=== PATIENT | female | born 1980 | race Caucasian/White ===

== ENCOUNTER 2024-10-30 15:22 | Emergency (ER) | payer OTHER, SELFPAY ==
--- NOTE | 2024-10-30 15:29 | ED.URI ---
HPI - URI/Sore Throat General Chief Complaint: Upper Respiratory Infection Stated Complaint: Ear Pain/Runny Nose/Facial Pain Time Seen by Provider: 10/30/24 15:32 Source: patient and RN notes reviewed Mode of arrival: ambulatory Limitations: no limitations History of Present Illness HPI Narrative: 44-year-old female presents with concern for sinus congestion, pressure and left ear pain that started yesterday. Reports history of allergies. She takes Zyrtec and Flonase daily. She denies fever. MD elicited complaint: rhinorrhea and nasal congestion Related Data Home Medications ?Medication ?Instructions ?Recorded ?Confirmed ?Last Taken ?Type Zyrtec 10/30/24 Unknown History flonase 10/30/24 Unknown History Allergies Allergy/AdvReac Type Severity Reaction Status Date / Time dexamethasome Allergy Severe Other Uncoded 10/30/24 15:34 Review of Systems Review of Systems: CONSTITUTIONAL: Denies malaise, chills, sweats, or fever. EYES: Denies visual changes, redness, or discharge. ENT: Reports rhinorrhea, congestion, otalgia CARDIOVASCULAR: Denies chest pain, palpitations, or edema. RESPIRATORY: Denies cough. Denies dyspnea. GASTROINTESTINAL: Denies abdominal pain, nausea, vomiting, diarrhea SKIN: Denies rash or itching. MUSCULOSKELETAL: Denies myalgia. NEUROLOGIC: Denies headache. All systems reviewed & are unremarkable except as noted in HPI and below PMFSH Comments At time of signature, agree with nursing past medical, surgical, social and family history. There is no relevant family history pertinent to the presenting complaint Exam Narrative: GENERAL: Well-appearing, well-nourished, and in no acute distress. HEAD: Normocephalic EYES: PERRLA, conjunctivae clear ENT: Nares clear, turbinates edematous and erythematous, clear discharge. Mucous membranes moist. TM pearly nielsen with dull light reflex bilaterally; no tragal tenderness. Oropharynx not erythematous without lesions. Tonsils not enlarged and without exudate, no drooling, no hoarseness, no trismus, uvula midline. NECK: Supple. No lymphadenopathy CHEST: Clear to auscultation, breath sounds equal. No wheezing, rhonchi, rales, or stridor. No respiratory distress, speaks in full sentences. HEART: Regular rate and rhythm. No murmur heard. SKIN: Warm, dry, no rash. NEURO: Alert and oriented x3. PSYCH: Normal mood and affect Course Course Emergency Course: Patient is aware of diagnosis, understands and agrees to treatment plan. Anticipatory guidance given. Patient agrees to follow-up as directed and is aware of reasons to seek care at the emergency department. Portions of this record may have been created with voice recognition software Level of Care: Express Care Visit Vital Signs Vital signs: Reviewed. MDM - URI/Sore Throat MDM Narrative Medical decision making narrative: Differential diagnosis considered: Hannon virus, strep pharyngitis, allergic rhinitis, upper respiratory tract infection, sinusitis, rhinosinusitis, nasopharyngitis. viral pharyngitis, otitis media, otitis externa, pneumonia, bronchitis, viral cough syndrome, viral syndrome, and influenza. Exam findings show no acute concerns or changes; patient is non-toxic appearing and is in no distress. Patient is appropriate for outpatient treatment and follow-up. Lab Data Attestation: I reviewed the patient's lab results. Critical Care Time Critical Care Time Critical Care Time: No Discharge Plan Discharge Clinical Impression: Fluid level behind tympanic membrane of both ears Patient Disposition: Home Condition: Stable Instructions: Fluid In The Ear (Serous Otitis Media) (ED) Additional Instructions: Take medication as prescribed Recommend antihistamine such as Benadryl at night time and Zyrtec or Kalee during the day Also, recommend symptomatic treatment includes: rest, fluids, and increase humidity of the air at home. Recommend Acetaminophen as directed on the bottle to reduce fever, pain, headache. Avoid smoking/second-hand smoke. Please schedule a follow-up visit with your personal physician for further evaluation and treatment within 3-5days. If your symptoms persist, change or worsen significantly before you can contact your personal physician then please, without delay, go to the emergency department for further evaluation. Patient Language: Upper Sorbian Prescriptions: New methylprednisolone [Medrol (Reinier)] 4 mg tablets,dose pack See Rx Instructions .ROUTE .COMPLEX Qty: 21 0RF Rx Instructions: orally per package directions No Action Zyrtec flonase Follow-up/Referrals: PHYSICIAN NOT ON STAFF,NONSTAFF [Primary Care Provider] - Time of Disposition: 15:42
[2024-10-30 15:31] VITALS: BP 130/79; PULSE 94; RESP 16; TEMP 36.8; O2SAT 100
--- OUTSIDE RECORDS SUMMARY | 2024-10-30 16:41 | XMS_ITS | Clinical Summary ---
Author Organization [facility] Address [address] [place] [address] Care Team Providers Care Rover Tender Name Role Phone Bhavani Henning NP Primary Care Provider [phone] Allergies Active Allergy Reactions Criticality Noted Date Comments Dexamethasone Dystonia High 07/09/2024 Medications ketorolac (TORADOL) 10 mg tablet Take 1 tablet (10 mg total) by mouth every 6 (six) hours as needed for pain 20 tablet 07/09/2024 Active methocarbamoL (ROBAXIN) 500 mg tablet Take 1 tablet (500 mg total) by mouth 2 (two) times a day 20 tablet 07/09/2024 Active Social History Tobacco Use Types Packs/Day Years Used Date Smoking Tobacco: Never Assessed Personal Safety Answer Date Recorded Have you ever been in or are you currently in a harmful physical or emotional relationship or is someone making you feel afraid or unsafe? Denies 07/09/2024 Comments Unknown Sex and Gender Information Value Date Recorded Sex Assigned at Not on file Legal Sex Female 9:01 AM CDT Gender Identity Not on file Sexual Orientation Not on file Last Filed Vital Signs Vital Sign Reading Time Taken Comments Blood Pressure 139/79 07/09/2024 3:30 PM FOREST MANAGEMENT PROFESSOR Pulse 92 07/09/2024 3:30 PM FOREST MANAGEMENT PROFESSOR Temperature 37 C (98.6 F) 07/09/2024 3:30 PM FOREST MANAGEMENT PROFESSOR Respiratory Rate 18 07/09/2024 3:30 PM FOREST MANAGEMENT PROFESSOR Oxygen Saturation 100% 07/09/2024 3:30 PM FOREST MANAGEMENT PROFESSOR Inhaled Oxygen Concentration - - Weight 63.5 kg (140 lb) 07/09/2024 1:42 PM FOREST MANAGEMENT PROFESSOR Height 144.8 cm (4' 9 ) 07/09/2024 1:42 PM FOREST MANAGEMENT PROFESSOR Body Mass Index 30.3 07/09/2024 1:42 PM FOREST MANAGEMENT PROFESSOR Plan of Treatment Health Maintenance Due Date Last Done Comments Breast Cancer Screening-Mammogram 1979 Cervical Cancer Screening 1979 Colon Cancer Screening-Colonoscopy 1979 Depression Screening 1979 Hepatitis C Screening 1979 DTaP/Tdap/Td Vaccine (1 - Tdap) 1990 Varicella Vaccines (1 of 2 - 13+ 2-dose series) 1992 Hepatitis B Screening 1997 Regular Well Visit/Exam 18-64 1997 Covid-19 Vaccine (3 - 2023-2 5 season) 2024 11/09/2020, 10/19/2020 Influenza Vaccine (#1) 2024 HPV Vaccines Aged Out No longer eligi ble based on patient's age to complete this topic Pneumococcal vaccine <65 Aged Out No longer eligible based on patient's age to complete this topic Insurance [facility] Care Teams Rover Tender Relationship Specialty Start Date End Date Bhavani Henning NP [address] [place] [address] PCP - General Song And Dance Performer 02/23/24
--- OUTSIDE RECORDS SUMMARY | 2024-10-30 16:41 | XMS_ITS | Clinical Summary ---
Author Organization [facility] Address [address] [place] [address] Phone Care Team Providers Care Osteopathy Doctor Name Role Phone JuvencioBhavani sexton Yumiko BETANCOURT CNP Primary Care Provider [phone] Allergies Active Allergy Reactions Criticality Noted Date Comments Dexamethasone Rash High 02/17/2024 Face became bright red, whole body hurt Sulfa Antibiotics Hives 08/28/2021 Medications pantoprazole (PROTONIX) 40 MG Tablet Delayed Response Take 40 mg by mouth daily. Active Cholecalcifero l (Vitamin D) 2000 UNIT Tablet Take by mouth. Active lisinopril (PRINIVIL, ZESTRIL) 20 MG Tablet Take 1 Tablet by mouth daily. 90 Tablet 1 4 Active cetirizine (ZyrTEC Allergy) 10 MG TabletIndicati ons:Allergy, sequela Take 1 Tablet by mouth daily. 90 Tablet 1 4 Active fluticasone (FLONASE) 50 MCG/ACT Suspension USE 1 SPRAY(S) IN EACH NOSTRIL ONCE DAILY DIRECTED 16 g 5 Active fluticasone (FLONASE) 50 MCG/ACT Suspension 1 Era by Nasal route daily. Use in each nostril as directed. 16 g 2 4 025 Discontinued Active Problems Problem Noted Date Diagnosed Date Hypertension Encounters Date Type Department Care Team Description 10/19/2024 Refill [facility] - Primary Care - [place] [address] [place] [address] Huelskoetter, Viki E, PAINT PREP TECHNICIAN, PROJECT PLANNER Medication Refill from Last 3 Months Immunizations Immunization Administration Dates Next Due Covid-19, Mrna, Lnp-s, Pf, 30 Mcg/0.3 Ml Dose (P fizer) 11/09/2020,10/19/2020 Family History Medical History Relation Name Comments Cancer Father stomach or panc reatic Hypertension Mother Relation Name Status Comments Father Mother Alive Social History Tobacco Use Types Packs/Day Years Used Date Smoking Tobacco: Every Day Cigarettes 0.5 29.2 Started: 09/01/1995 Smokeless Tobacco: Never Tobacco Cessation:Ready to Q uit: Not Asked; Counseling Given: Not Answered Alcohol Use Standard Drinks/Week Comments Not Currently 0 (1 standard drink = 0.6 oz pur e alcohol) PHQ-2 Answer Date Recorded Total Score - Questions 1-9 0 01/23 Sexually Active Control Partners Comments Not Currently Comments No Sex and Gender Information Value Date Recorded Sex Assigned at Not on file Legal Sex Female 3:37 PM SCIENCE EDUCATION PROFESSOR Gender Identity Not on file Sexual Orientation Not on file Last Filed Vital Signs Vital Sign Reading Time Taken Comments Blood Pressure 128/74 02/17/2024 4:18 PM CDT Pulse 87 02/17/2024 4:18 PM CDT Temperature 36.7 C (98 F) 02/17/2024 4:18 PM CDT Respiratory Rate 18 02/17/2024 4:18 PM CDT Oxygen Saturation 98% 02/17/2024 4:18 PM CDT Inhaled Oxygen Concentration - - Weight 70.8 kg (156 lb) 02/17/2024 4:18 PM CDT Height 149.9 cm (4' 11 ) 02/17/2024 4:18 PM CDT Body Mass Index 31.51 02/17/2024 4:18 PM CDT Plan of Treatment Health Maintenance Due Date Last Done Comments Hepatitis C Virus (HCV) Screening 1979 Mammogram 1979 TdaP Immunization 1979 Hepatitis B Immunization (1 of 3 - 19+ 3-dose series) 1998 Pneumococcal Immunization Combined (1 of 2 - PCV) 1998 Discussion re Starting/Frequency of Mammograms 2019 Pap Smear 12/27/2023 12/26/2020 Influenza Immunization (#1) 2024 SARS-COV-2 Immunization ( season) 2024 11/09/2020, 10/19/2020 Cervical Cancer Screening (CCS) 12/26/2025 HPV/Cotest 12/26/2025 12/26/2020 Colonoscopy 02/08/2029 02/08/2019 Colorectal Cancer Screening 02/08/2029 Respiratory Syncytial Virus (RSV) Immunization (Adult) (1 - 1-dose 75+ series) 2054 02/08/2019 Meningococcal Immunization (ACWY) Aged Out No longer eligible b ased on patient's age to complete this topic Rotavirus Immunization Aged Out No lo nger eligible based on patient's age to complete this topic Procedures Procedure Name Priority Date/Time Associated Diagnosis Comments HUMAN PAPILLOMA VIRUS (HPV) 12/26/2020 12:00 AM CDT PATHOLOGY CYTOLOGY LPN MEDICAL ASSISTANT 12:00 AM CDT HM COLONOSCOPY 02/08/2019 12:00 AM CDT from Last 3 Months or Most Recently Relevant to Health Maintenance Results * PATHOLOGY CYTOLOGY LPN MEDICAL ASSISTANT (12/26/2020 12:00 AM CDT) 12/26/2020 us Not On File Provider PATHOLOGY/CYTOLOGY ORDERABL ES Final Result Performing Organization Address [facility] de Phone Number SCAN * HUMAN PAPILLOMA VIRUS (HPV) (12/26/2020 12:00 AM CDT) 12/26/2020 us Not On File Provider LAB SEND OUTS Final Resul t Performing Organization Address [facility] Co de Phone Number SCAN * HM COLONOSCOPY (02/08/2019 12:00 AM CDT) 02/08/2019 us Not On File Provider PROCEDURE/MINOR SURGICAL OR DERABLES Final Result Performing Organization Address [facility] Co de Phone Number AP NON-[facility] from Last 3 Months or Most Recently Relevant to Health Maintenance Insurance MEDICAID [place] Care Teams Osteopathy Doctor Relationship Specialty Start Date End Date Bhavani Henning, PAINT PREP TECHNICIAN, PROJECT PLANNER [address] [place] [address] PCP - General Certified Nurse Practitioner 02/17/24
--- OUTSIDE RECORDS SUMMARY | 2024-10-30 16:41 | XMS_ITS | Referral Summary ---
Author Organization [facility] Address [address] [place] [address] Care Team Providers Care Tech Writer Name Role Phone Bhavani Henning NP Primary Care Provider [phone] Allergies Active Allergy Reactions Criticality Noted Date [...] Comments Blood Pressure 139/79 07/09/2024 3:30 PM BROODMARE FOREMAN Pulse 92 07/09/2024 3:30 PM BROODMARE FOREMAN Temperature 37 C (98.6 F) 07/09/2024 3:30 PM BROODMARE FOREMAN Respiratory Rate 18 07/09/2024 3:30 PM BROODMARE FOREMAN Oxygen Saturation 100% 07/09/2024 3:30 PM BROODMARE FOREMAN Inhaled Oxygen Concentration - - Weight 63.5 kg (140 lb) 07/09/2024 1:42 PM BROODMARE FOREMAN Height 144.8 cm (4' 9 ) 07/09/2024 1:42 PM BROODMARE FOREMAN Body Mass Index 30.3 07/09/2024 1:42 PM BROODMARE FOREMAN Plan of Treatment Not on file Insurance [facility] Care Teams Tech Writer Relationship Specialty Start Date End Date Bhavani Henning NP [address] [place] [address] PCP - General Oil And Gas Exploration Technician 02/23/24
== END 2024-10-30 15:48 | disposition home or self-care (01) ==
PROVIDERS: Emergency Provider Nurse Practitioner
DX: H73.893 Other specified disorders of tympanic membrane, bilateral (principal)
CPT/HCPCS: 99203; G0463